=== PATIENT | male | born 1990 | race Caucasian/White ===

== ENCOUNTER → 2018-12-16 | Outpatient (CLI) | payer OTHER ==
--- NOTE | 2018-12-16 16:58 | REP ---
HISTORY: Back and left leg pain. Decreased signal intensity on T2-weighted images is present in the L5-S1 intervertebral disc. This represents disc degeneration. There is no disc bulge or herniation at the L1-2 through L3-4 levels. The nerves exit the neural foramina without compression. A diffuse disc bulge is present at the L4-5 level. There is minimal compression of the thecal sac. The L4 nerves exit the neural foramina without compression. A small central disc protrusion is present at the L5-S1 level. This abuts the thecal sac. The L5 nerves exit the neural foramina without compression. The conus medullaris is normal in appearance terminating at the level of the L1-2 intervertebral disc. Normal signal intensity is present in the lumbar vertebral bodies. IMPRESSION: 1. Diffuse disc bulge at the L4-5 level with minimal thecal sac compression. 2. Small central disc protrusion at the L5-S1 level. This abuts the thecal sac. Electronically Signed by Gary Humphreys MD 12/16/2018 05:00 P
== END ==
LOC: M RAD 15:21
PROVIDERS: ATTEND Specialist/Technologist Athletic Trainer
DX: M51.26 Other intervertebral disc displacement, lumbar region (principal)

== ENCOUNTER 2019-04-27 08:01 | Emergency (ER) | payer OTHER ==
[~2019-04-27] VITALS: Ht 193 cm; Wt 120.5 kg
[2019-04-27 08:01] VITALS: BP 136/83
[2019-04-27] MEDS ORDERED: ZYRTTAB8 PO (08:17)
[2019-04-27] MEDS ORDERED: BENA25CA4 PO (08:17)
[2019-04-27] MEDS ORDERED: PRED20TA PO (08:34)
[2019-04-27] MEDS ORDERED: TRIA1OI TOP (08:34)
== END 2019-04-27 08:49 | disposition home or self-care (01) ==
LOC: M ED 08:01
DX: L20.9 Atopic dermatitis, unspecified (principal); Z79.899 Other long term (current) drug therapy

== ENCOUNTER 2019-05-20 09:36 | Emergency (ER) | payer OTHER ==
[~2019-05-20] VITALS: Ht 190.5 cm; Wt 120.5 kg
[~2019-05-20 09:36] MED LIST: BENA25CA4 PO; PRED20TA PO; TRIA1OI TOP; ZYRTTAB8 PO
[2019-05-20] MEDS ORDERED: VENL37.598 (09:43)
[2019-05-20] MEDS ORDERED: LUNE2TAB23 PO (09:43)
--- NOTE | 2019-05-20 12:20 | REP ---
SCROTAL ULTRASOUND: Real-time sonographic evaluation of scrotum and contents performed. Testicles are normal in size and echotexture, right testicle measuring 4.7 x 2.5 x 3.0 cm and left testicle 4.1 x 2.5 x 2.7 cm. Multiple cysts are seen in each epididymis, largest on the right measures 4 x 3 x 5 mm and left 6 x 6 x 7 mm. There are small bilateral hydroceles. There appears to be a small left varicocele. Two mobile calcific bodies in the left scrotum (scrotal pearls) are benign and measure 5 and 3 mm. With duplex Doppler evaluation, resistive index right testicle 0.48 and left testicle 0.59. IMPRESSION: No testicular mass or torsion. Small cysts are seen in each epididymis. There are small bilateral hydroceles. There is a small left varicocele. Two benign mobile calcifications are seen in the left scrotum measuring 5 and 3 mm. Electronically Signed by Ronn Riley MD 05/20/2019 12:52 P
[2019-05-20 12:45] VITALS: BP 134/72
--- NOTE | 2019-05-20 13:19 | ED PDOC ---
Post-Departure Follow-Up ft [facility] faxed formal report of scrotal us for fu Pedro Jaeger MD May 20, 2019 13:19
== END 2019-05-20 12:59 | disposition home or self-care (01) ==
LOC: M ED 09:36
DX: N43.3 Hydrocele, unspecified (principal); I86.1 Scrotal varices; G47.9 Sleep disorder, unspecified; M54.5 Low back pain; M19.90 Unspecified osteoarthritis, unspecified site; Z79.899 Other long term (current) drug therapy

== ENCOUNTER → 2019-05-27 | Outpatient (REF) | payer OTHER ==
[~2019-05-27] MED LIST changes: +LUNE2TAB23 PO; +VENL37.598
[2019-05-27 09:47] LABS: SEMEN APPEARANCE OPAQUE (OPAQUE)
[2019-05-27 09:48] LABS: SEMEN VISCOSITY LIQUID (LIQUID); SEMEN VOLUME 4.1 ml (2.0-5.0); SEMEN pH 8.5 (7.0-8.0); SPERM CONCENTRATION 22.9 M/ml (>=15.0); WBC CONCENTRATION <=1 M/ml (<=1 M/ml)
[2019-05-27 10:06] LABS: SEMEN APPEARANCE OPAQUE (OPAQUE); SEMEN VISCOSITY LIQUID (LIQUID); SEMEN VOLUME 4.1 ml (2.0-5.0); SEMEN pH 8.5 (7.0-8.0); SPERM CONCENTRATION 5.4 M/ml (>=15.0); WBC CONCENTRATION <=1 M/ml (<=1 M/ml)
[2019-05-27 11:12] LABS: SEMEN APPEARANCE OPAQUE (OPAQUE); SEMEN VISCOSITY LIQUID (LIQUID); SEMEN VOLUME 4.1 ml (2.0-5.0); SEMEN pH 8.5 (7.0-8.0); SPERM CONCENTRATION 10.3 M/ml (>=15.0); WBC CONCENTRATION <=1 M/ml (<=1 M/ml)
[2019-05-27 13:15] LABS: SEMEN APPEARANCE OPAQUE (OPAQUE); SEMEN VISCOSITY LIQUID (LIQUID); SEMEN VOLUME 4.1 ml (2.0-5.0); SEMEN pH 8.5 (7.0-8.0); SPERM CONCENTRATION 15.9 M/ml (>=15.0); WBC CONCENTRATION <=1 M/ml (<=1 M/ml)
== END ==
LOC: M LAB REF 09:40
PROVIDERS: ATTEND Physician Assistant
DX: N46.9 Male infertility, unspecified (principal)